=== PATIENT | male | born 1995 | race Caucasian/White ===

== ENCOUNTER 2023-06-17 12:13 | Emergency (ER) | payer OTHER, SELFPAY ==
[2023-06-17 12:24] VITALS: BP 130/78; PULSE 83; RESP 20; TEMP 36.6; O2SAT 98
--- NOTE | 2023-06-17 13:14 | ED.URI ---
HPI - URI/Sore Throat General Chief Complaint: Upper Respiratory Infection Stated Complaint: throat/cough Time Seen by Provider: 06/17/23 13:14 Source: patient, RN notes reviewed and old records reviewed Mode of arrival: ambulatory Limitations: no limitations History of Present Illness HPI Narrative: 27 year old male who [facility] with complaints of sore throat and cough with body aches for the past 4 days. Patient reports that he has history of strep throat in past. Patient has been taking Juanita, Robitussin, and Ibuprofen for his symptoms. Patient does not want any testing done concerned over cost of testing.Patient denies any shortness of breath, no tachypnea noted, respirations even and nonlabored. Patient denies any acute fevers, chills or sweats. MD elicited complaint: cough, sore throat and other (body aches) Pertinent past history: other (strep throat) Onset (ago): day(s) (4) Able to tolerate fluids by mouth: Yes Exacerbating factors: swallowing Treatments prior to arrival: ibuprofen and other (Juanita and Robitussin) Related Data Allergies Allergy/AdvReac Type Severity Reaction Status Date / Time No Known Allergies Allergy Verified 06/17/23 12:52 Review of Systems Review of Systems: CONSTITUTIONAL: Denies malaise, chills, sweats, or fever. EYES: Denies visual changes, redness, or discharge. ENT: Reports rhinorrhea, congestion, no sinus pain, no otalgia and positive for sore throat. CARDIOVASCULAR: Denies chest pain, palpitations, or edema. RESPIRATORY: Reports cough.? Denies dyspnea. GASTROINTESTINAL: Denies abdominal pain, nausea, vomiting, diarrhea SKIN: Denies rash or itching. MUSCULOSKELETAL:Reports myalgia. NEUROLOGIC: Denies headache. All systems reviewed & are unremarkable except as noted in HPI and below PMFSH Past Medical History Medical History (Updated 06/19/23 @ 10:11 by Olivia Guzman NP) Strep throat Social History Social History (Updated 06/19/23 @ 10:11 by Olivia Guzman NP) Smoking status: Never smoker Alcohol intake: current Alcohol use details: social Substance use type: does not use Gender identity (if verbalized by the patient): Male Comments At time of signature, agree with nursing past medical, surgical, social and family history. There is no relevant family history pertinent to the presenting complaint Exam Narrative: GENERAL: Well-appearing, well-nourished, and in no acute distress. HEAD: Normocephalic EYES: PERRLA, conjunctivae clear ENT: Nares clear, turbinates edematous and erythematous, clear discharge. Mucous membranes moist. TM pearly romero with dull light reflex bilaterally; no tragal tenderness. Oropharynx erythematous without lesions. Tonsils red and enlarged and without exudate, no drooling, no hoarseness, no trismus, uvula midline.post nasal drainage NECK: Supple. lymphadenopathy CHEST: occasional wheezes on auscultation, breath sounds equal. wheezing, no rhonchi, rales, or stridor. No respiratory distress, speaks in full sentences.cough noted,SAO2 98% on room air HEART: Regular rate and rhythm. No murmur heard. SKIN: Warm, dry, no rash. NEURO: Alert and oriented x3. PSYCH: Normal mood and affect Course Course Emergency Course: Patient is aware of diagnosis, understands and agrees to treatment plan.? Anticipatory guidance given.? Patient agrees to follow-up as directed and is aware of reasons to seek care at the emergency department. Portions of this record may have been created with voice recognition software Level of Care: Express Care Visit Vital Signs Vital signs: Vital Signs Temperature 36.6 C 06/17/23 12:24 Pulse Rate 83 06/17/23 12:24 Respiratory Rate 20 06/17/23 12:24 Blood Pressure 130/78 06/17/23 12:24 Pulse Oximetry 98 06/17/23 12:24 Oxygen Delivery Room Air 06/17/23 12:24 Temperature 36.6 C 06/17/23 12:24 Pulse Rate 83 06/17/23 12:24 Respira
== END 2023-06-17 13:25 | disposition home or self-care (01) ==
PROVIDERS: Emergency Provider Registered Nurse; PCP Internal Medicine
DX: J03.90 Acute tonsillitis, unspecified (principal)
CPT/HCPCS: 99213; G0463

== ENCOUNTER 2024-12-06 08:11 | Emergency (ER) | payer OTHER, SELFPAY ==
--- NOTE | ~2024-12-06 | XR_ITS ---
Cervical Spine: AP, lateral, open-mouth views Clinical History: Pain Findings: There is mild reversal of the normal cervical lordosis. The vertebral bodies and posterior elements appear intact. The intervertebral disc spaces are well maintained. Pre-vertebral soft tiss ues are unremarkable. Impression: Mild reversal of the normal cervical lordosis, otherwise unremarkable exam. Reviewed, dictated and finalized at [facility]. Impression: Mild reversal of the normal cervical lordosis, otherwise unremarkable exam.
[2024-12-06 08:15] VITALS: BP 128/74; PULSE 63; RESP 16; TEMP 36.4; O2SAT 100
--- NOTE | 2024-12-06 08:34 | ED_ITS ---
HPI - Neck Pain/Injury General Chief Complaint: Neck Pain/Injury Stated Complaint: Neck Pain Time Seen by Provider: 12/06/24 08:34 Source: patient Mode of arrival: ambulatory Limitations: no limitations History of Present Illness HPI Narrative: 28 y/o male presented for c/o neck pain and decreased ROM following injury last night. States he was doing a jujitsu roll with his , and felt a pop in the neck. Pain radiates to the shoulder blades. States Pain has worsened since injury. Rates 5/10 at rest, 10/10 with movement of the neck. Denies hitting his head or LOC. Denies numbness, tingling or pain radiating into the arms. Endorses normal ROM to arms. Took ibuprofen 400mg last night. Related Data Allergies Allergy/AdvReac Type Severity Reaction Status Date / Time No Known Allergies Allergy Verified 12/06/24 08:39 Review of Systems Review of Systems: CONSTITUTIONAL: Denies body aches, fever, chills, or sweats. EYES: Denies visual changes CARDIOVASCULAR: Denies chest pain, palpitations, or edema. RESPIRATORY: Denies cough or dyspnea. GASTROINTESTINAL: Denies abdominal pain, nausea, vomiting, or diarrhea. GENITOURINARY: Denies dysuria or hematuria. SKIN: Denies wounds. MUSCULOSKELETAL: reports neck pain Denies back pain, joint pain, or myalgia. NEUROLOGIC: Denies headache, numbness, tingling, or weakness. All systems reviewed & are unremarkable except as noted in HPI and below PMFSH Past Medical History Medical History (Updated 12/06/24 @ 09:24 by Bianca Gaines APRN) Strep throat Social History Social History (Updated 06/19/23 @ 10:11 by Olivia Guzman NP) Smoking status: Never smoker Alcohol intake: current Alcohol use details: social Substance use type: does not use Gender identity (if verbalized by the patient): Male Comments At time of signature, I have reviewed and agree with nursing past medical, surgical, social and family history unless otherwise noted. Please see nursing chart for further information. There is no relevant family history pertinent to the presenting complaint Exam Narrative: GENERAL: Appears in discomfort, no distress HEAD: Normocephalic, atraumatic. EYES: EOMI. Conjunctivae normal. ENT: Mucous membranes pink and moist. NECK: Decreased AROM due to pain. No VPT. CHEST: No respiratory distress. Clear to auscultation. HEART: Regular rate and rhythm. Normal peripheral pulses. EXTREMITIES: Normal range of motion to BUEs SKIN: Warm, dry, no rash. Capillary refill normal. Normal skin turgor. NEURO: No focal deficits. Alert and oriented x3. Gait steady. PSYCH: Normal affect. Course Course Emergency Course: Patient is aware of diagnosis, understands and agrees to treatment plan. Anticipatory guidance given. Patient agrees to follow-up as directed and is aware of reasons to seek care at the emergency department. Portions of this record may have been created with voice recognition software Level of Care: Express Care Visit Vital Signs Vital signs: Vital Signs Temperature 97.6 F 12/06/24 08:15 Pulse Rate 63 12/06/24 08:15 Respiratory Rate 16 12/06/24 08:15 Blood Pressure 128/74 12/06/24 08:15 Pulse Oximetry 100 12/06/24 08:15 Oxygen Delivery Room Air 12/06/24 08:15 Temperature 97.6 F 12/06/24 08:15 Pulse Rate 63 12/06/24 08:15 Respiratory Rate 16 12/06/24 08:15 Blood Pressure 128/74 12/06/24 08:15 Pulse Oximetry 100 12/06/24 08:15 Oxygen Delivery Room Air 12/06/24 08:15 MDM - Neck Pain/Injury MDM Narrative Medical decision making narrative: Discussed physical exam findings and results of x-ray. Reviewed prescriptions.. Advised supportive measures and signs/symptoms to go to the ER. Pt is appropriate for outpt treatment and f/u. Differential Diagnosis Differential diagnosis: Likely disc disorder of cervical region, whiplash injury to neck, closed subluxation of cervical spine, fracture of cervical spine without lesion of spinal cord, cervical radiculopathy, vertebral artery dissection, torticollis, cervical spondylosis and strain of neck muscle Imaging Data Radiologist's impression: Patient: Moe Powell : 1995 MR#: [id number] Age: 28 Acct:[id number] Loc: [facility] ADM Date: 12/06/24Attending Dr: Cervical Spine: AP, lateral, open-mouth views Clinical History: Pain Findings: There is mild reversal of the normal cervical lordosis. The vertebral bodies and posterior elements appear intact. The intervertebral disc spaces are well maintained. Pre-vertebral soft tissues are unremarkable. Impression: Mild reversal of the normal cervical lordosis, otherwise unremarkable exam. Discharge Plan Discharge Clinical Impression: Acute neck pain Patient Disposition: Home Condition: Stable Instructions: Acute Neck Pain (ED) Additional Instructions: Rest. Avoid pushing, pulling, lifting or anything that worsens the symptoms Tylenol 1000mg every 8 hours as needed You can alternate with ibuprofen 800mg as prescribed Cyclobenzaprine (Flexeril) is a muscle relaxer. Take it as directed. It can cause drowsiness so do not drive or operate machinery until you know how it makes you feel. Alternate ice/heat to the site. Lidocaine or salon pas pain patch or use pain cream like icy/hot or biofreeze. Follow up with your primary care provider as needed in 3 days Go to the ER for worsening symptoms or concerns Patient Language: Portuguese Prescriptions: New cyclobenzaprine 10 mg tablet 10 mg PO TID PRN (Reason: muscle spasm) Qty: 12 0RF ibuprofen 800 mg tablet 800 mg PO TID PRN (Reason: pain) Qty: 15 0RF Follow-up/Referrals: Addi,Stefano Etienne MD [Primary Care Provider] - Stand Alone Forms: Work/School Release IP Time of Disposition: 09:23
== END 2024-12-06 09:25 | disposition home or self-care (01) ==
PROVIDERS: Emergency Provider Nurse Practitioner Family; PCP Internal Medicine
DX: M54.2 Cervicalgia (principal)
CPT/HCPCS: 72040; 99213; G0463